=== PATIENT | male | born 1965 | race Caucasian/White ===

== ENCOUNTER 2023-06-01 07:29 | Day surgery (SDC) | payer BC, SELFPAY ==
[2023-06-01] VITALS (11 sets, daily range): BP systolic 102–129; BP diastolic 54–86; PULSE 53–65; RESP 16; TEMP 36.4–36.9; O2SAT 90–95; BMI 44.5
[2023-06-01] MEDS: SODIUM CHLORIDE 0.9 % (FLUSH) 10 ML SYRINGE IVF (08:10)
[2023-06-01] MEDS: LACTATED RINGERS 1000 ML 1,000 ML 100 ML IV ×2 (08:10→09:37)
[2023-06-01] MEDS: CEFAZOLIN 2 GM INJ IVP (09:15)
[2023-06-01] MEDS: BUPIVACAINE 0.25% 30 ML INJECTION (09:55)
--- NOTE | 2023-06-01 10:08 | W.ANESCHARGE ---
Anesthesia Charges Start Date/Time Anesthesia Start Date: 06/01/23 Anesthesia Start Time: 09:07 Stop Date/Time Anesthesia Stop Date: 06/01/23 Anesthesia Stop Time: 10:07
--- NOTE | 2023-06-01 10:09 | W.ANESCHARGE ---
Anesthesia Charges Start Date/Time Anesthesia Start Date: 06/01/23 Anesthesia Start Time: 09:07 Stop Date/Time Anesthesia Stop Date: 06/01/23 Anesthesia Stop Time: 10:07
--- NOTE | 2023-06-01 10:15 | P.ORPRC_ITS ---
Procedure Note Date of procedure: 06/01/23 Procedure: PREOPERATIVE DIAGNOSIS: Left knee medial meniscus tear POSTOPERATIVE DIAGNOSIS: Left knee medial meniscus root tear NAME OF OPERATION: Left knee arthroscopic partial medial meniscectomy SURGEON: Jamil Tinajero MD REPAIR TABLE OPERATOR: ANESTHESIA: Spinal ESTIMATED BLOOD LOSS: 0 mL COMPLICATIONS: None SPECIMENS: None DRAINS: None PREOPERATIVE ANTIBIOTICS: Ancef 2 gram INDICATIONS: The patient is a 57-year-old with a history of left knee medial pain. MRI scan is consistent with a medial meniscus tear. Despite appropriate nonoperative management, including activity modification, antiinflammatories, [id number] pain medication, bracing, physical therapy, and injections they continue to have pain and disability. Operative intervention was offered. The risks, benefits and expected outcomes were discussed in detail. These included but were not limited to: Infection, bleeding, injury to blood vessel or nerve, venous thromboembolism. All questions were answered to their satisfaction. PROCEDURE: Spinal anesthesia was administered. The patient was placed supine on the operating room table. The left lower extremity was prepped and draped in the usual sterile fashion. The limb was exsanguinated with the Mario Alberto bandage. The pneumatic tourniquet was inflated to 300 mmHg. A standard anterolateral portal was established. The arthroscope was introduced. The working portal was established anteromedially. Diagnostic arthroscopy was performed with findings as follows: The suprapatellar pouch is normal. Articular surface on the patella is normal. Articular surface on the trochlea shows grade 2 change. The medial gutter is normal. The medial compartment shows diffuse grade 3 change on the medial femoral condyle, grade 2 change on the medial tibial plateau. The medial meniscus has some degenerative tearing of the leading edge of the posterior horn. There is a radial tear, just off the posterior tibial attachment from the leading edge, to the capsule with some hemorrhage, suggesting it is acute. The notch shows the ACL to be intact with an osteophyte off of the tibia, just anterior to the ACL insertion. The lateral compartment shows normal articular cartilage on the lateral femoral condyle and lateral tibial plateau. The lateral meniscus is normal. The lateral gutter is normal. The undersurface and leading edge of the posterior horn of the medial meniscus was debrided to a stable base using a combination of baskets and teto through both portals. The stump of the posterior horn, still attached to the tibia, was debrided with the shaver. Unstable chondral flaps on the medial femoral condyle were debrided with the shaver taken to a stable base. Arthroscopic instruments were removed, the portal sites were Steri-Stripped closed, the knee was infiltrated with 30 mL of 0.25% Marcaine without epinephrine. A dry dressing was applied, the tourniquet was released. Sponge and needle counts were correct x 2. The patient tolerated the procedure well. There were no apparent complications. They were carefully transferred to the hospital bed and taken to the postanesthesia care unit in satisfactory condition. PLAN: The patient will be discharged to home. They may weightbear as tolerates. Range of motion will be unrestricted. They will follow up in the office next week for a wound check.
[2023-06-01] MEDS: OxyCODONE/APAP 5-325 TABLET 1 TAB PO (11:10)
== END 2023-06-01 11:26 | disposition home or self-care (01) ==
PROVIDERS: PCP Family Medicine; Visit Provider Orthopaedic Surgery
PROC: (CPT 29870; principal; 2023-06-01 09:30)
DX: M23.222 Derangement of posterior horn of medial meniscus due to old tear or injury, left knee (principal)
CPT/HCPCS: 29881; 01400; A9270; J0665; J0690; J2250; J2405; J2704; J3010; J7120

== ENCOUNTER 2024-09-12 06:14 | Day surgery (SDC) | payer BC, SELFPAY ==
[2024-09-12] VITALS (13 sets, daily range): BP systolic 111–152; BP diastolic 64–81; PULSE 61–78; RESP 16–20; TEMP 36.4–36.6; O2SAT 91–94; BMI 44.2
[2024-09-12] MEDS: 0.9 % SODIUM CHLORIDE 500 ML 500 ML 100 ML IV ×2 (06:30→10:31)
[2024-09-12] MEDS: SODIUM CHLORIDE 0.9 % (FLUSH) 10 ML SYRINGE IVF (06:38)
--- NOTE | 2024-09-12 07:36 | P.GSOP_ITS ---
Operative Note Date of procedure: 09/12/24 Pre-op diagnosis: Bilateral inguinal hernias Post-op diagnosis: Same Type of Procedure: Laparoscopic bilateral inguinal hernia repair with mesh Indications: The patient is a 58-year-old male who noted right groin swelling and was found to have bilateral fat containing inguinal hernias. Initially after discussing options, he elected to proceed with a watchful waiting approach, however he began to become more symptomatic on the left, having pain radiating down to his testicle. After ruling out any testicular infection or other concerns, he elected to proceed with repair of both hernias. Procedure Description: After discussing the risks and benefits of the procedure, the patient signed informed consent.? The operative site was marked and the patient was brought to the operating room and placed on the operating table in supine position.? Care was taken to pad the patient's pressure points.?? The patient was then intubated by anesthesia.?? The operative site was then prepped and draped in the usual sterile fashion.? A time-out was then performed. A curvilinear incision was made below the umbilicus. Dissection was carried down to subcutaneous tissue until the anterior rectus fascia was encountered. This was incised off the midlineOn the right. The rectus muscle fibers were then retracted exposing the posterior fascia. A port with a dissecting balloon was then introduced into the pre-preperitoneal space. This was inflated under direct vision. The balloon was deflated, removed, and a 10 mm working port was placed. The space was insufflated and a 10 mm 30-degree scope was then advanced into the space. Two 5 mm ports were placed in the midline under direct vision. Dissection began on the right side. Roman's ligament and the pubic bone were exposed medially. Following this, dissection was carried out laterally. An indirect hernia was noted. The hernia was associated with a large amount of herniated preperitoneal fat. This was able to be completely reduced along with the hernia sac. A small vessel within the fat was clipped for hemostasis. The cord structures were cleared intraperitoneally and dissection was carried out laterally to allow for mesh placement. A piece of Bard 3DMax mesh for the appropriate side was placed into the abdomen. This was positioned with the marker pointed medially. Attention was then turned to the left. Similarly, an indirect inguinal hernia was noted. This was reduced. This hernia was noted to be smaller and did not have a large cord lipoma associated with it. The hernia sac was reduced and dissected free of the cord structures using combination of sharp and blunt diss ection. The defect was explored visually to ensure any preperitoneal fat was reduced. The pubic bone was exposed medially and space was made laterally in the pelvis. A piece of Bard 3DMax mesh for the left side was then placed in the abdomen. This was similarly positioned with the marker pointed medially. Tacks were then placed to fix the mesh at Roman's ligament as well as 1 tack laterally to avoid the epigastric vessels and stay above the inguinal ligament. I then tacked the mesh on the right in the same fashion as the left side after ensuring it was seated appropriately and that it overlapped in the midline. Once this was completed the hernia sacs and intra-abdominal tissue was placed on top of the mesh and the preperitoneal space desufflated under direct vision to ensure the mesh laid flat. 20 mL of 0.5% Marcaine were instilled into the preperitoneal space through a port. The ports were removed. The fascia from the infraumbilical port was closed with 0 Vicryl. The skin incisions were closed with absorbable subcuticular suture. Sterile dressings were then applied. The scrotum was examined to ensure that both testicles were down. Instrument sponge and needle counts were correct at the end of the case. The patient was then woken and transported to the recovery area in stable condition. ? The patient tolerated the procedure well. Findings: 1. Bilateral indirect inguinal hernias 2. Large herniation of preperitoneal fat on the right Implants: Bilateral Bard large 3DMax mesh. Anesthesia: GETA Surgeon: Lexis Aden MD Estimated blood loss (mL): 5 Condition: stable Disposition: PACU
--- NOTE | 2024-09-12 07:36 | W.PM.H&PU ---
History & Physical Update History & Physical Update H&P Reviewed and patient assessed: No changes noted
[2024-09-12] MEDS: CEFAZOLIN 1 GM inj 3 GM IVP (07:48)
[2024-09-12] MEDS: BUPIVACAINE 0.25% 30 ML INJECTION (09:12)
--- NOTE | 2024-09-12 09:55 | W.ANESCHARGE ---
Anesthesia Charges Start Date/Time Anesthesia Start Date: 09/12/24 Anesthesia Start Time: 07:30 Stop Date/Time Anesthesia Stop Date: 09/12/24 Anesthesia Stop Time: 09:50
[2024-09-12] MEDS: HYDROmorphone 0.5 mg/0.5 ml inj IVP (10:10)
[2024-09-12] MEDS: HYDROCODONE-ACETAMIN 5-325 MG 1 TAB PO (11:20)
== END 2024-09-12 11:31 | disposition home or self-care (01) ==
PROVIDERS: PCP Family Medicine; Visit Provider Surgery
PROC: (CPT 49650; principal; 2024-09-12 07:30)
DX: K40.20 Bilateral inguinal hernia, without obstruction or gangrene, not specified as recurrent (principal)
CPT/HCPCS: 49650; 00830; A9270; C1781; J0330; J0665; J0690; J1100; J1171; J1885; J2405; J2704; J3010; J3490; J7030

== ENCOUNTER 2025-01-10 06:22 | Emergency (ER) | payer OTHER, BC, SELFPAY ==
--- OUTSIDE RECORDS SUMMARY | 2025-01-10 06:24 | XMS_ITS | Clinical Summary ---
Author Organization [facility] Address [address] [place] [address] Care Team Providers Care Patient Case Coordinator Name Role Phone Keith Paz MD Primary Care Provider Allergies No known active allergies Medications [id number] cetaminophen (VICKS NYQUIL NIGHTTIME RELIEF) 6.25-15-325 mg/15 mL liqd Take by mouth once daily in the evening. Active aspirin (ECOTRIN) 81 mg enteric coated tabletIndicatio ns:HTN (hypertension) Take 1 tablet by mouth once daily with a meal. 90 tablet PRN x 1 yr 7 Active nitroglycerin (NITROSTAT) 0.4 mg sublingual tabletIndicatio ns:Abnormal stress test Place 1 tablet under the tongue every 5 minutes if needed for Chest Pain. 25 tablet 1 9 Active CPAPIndications :Obstructive sleep apnea CPAP machine for home use at pressure: 5-15 CM H20 , Heated humidifier x 1, Humidifier chamber x 1, Full face mask with cushion x 1, Heated tubing x 1, Headgear x 1, Filters: Disposable x 1pk & Reusable x 1pk, Length of Need: 99 months, Frequency of use: Daily 1 Each 11 2 Active cyanocobalamin (Vitamin B-12) 1,000 mcg tabletIndicatio ns:B12 deficiency Take 1 Tablet (1,000 mcg) by mouth once daily. 90 Tablet 3 4 Active amLODIPine (NORVASC) 10 mg tabletIndicatio ns:Ascending aorta dilatation TAKE 1 TABLET (10 MG) BY MOUTH ONCE DAILY. 90 Tablet 2 4 Active atorvastatin (LIPITOR) 80 mg tabletIndicatio ns:Ascending aorta dilatation Take 1 Tablet (80 mg) by mouth once daily. Please call [phone] 2 months in advance to schedule an office visit with imaging due in November 2024 90 Tablet 2 4 Active metoprolol succinate (TOPROL XL) 50 mg sustained-relea se tabletIndicatio ns:Ascending aorta dilatation,Abno rmal stress test Take 1 Tablet (50 mg) by mouth once daily. Please call [phone] 2 months in advance to schedule an office visit with imaging due in November 2024 90 Tablet 2 4 Active sildenafil citrate (Viagra) 100 mg tabletIndicatio ns:Erectile dysfunction of organic origin Take 1 Tablet (100 mg) by mouth once daily if needed for Erectile Dysfunction. Take 30min to 4 hours before sexual activity. Max 100mg/24hr. 15 Tablet 1 4 Active losartan (COZAAR) 100 mg tabletIndicatio ns:Ascending aorta dilatation Take 1 Tablet (100 mg) by mouth once daily. 90 Tablet 3 4 Active Active Problems Patient Care Coordination No te Formatting of this note migh t be different from the original. HF/Structural/Prevention Research Eligibility Review Date: 09/03/19 Upcoming Visit Location: [facility] Age: 53 y.o. Insurance: [employer] EF: LVID: Valve/Imaging: Cardiac Devices: Comments: HF: DNQ Structural: DNQ Prevention: Last lipids - 11/12/2018 Triglycerides: 337 HDL: 41 Non-HDL: 148 LDL: 81 A1c: Diabetes: No Vesalius:Potential Problem Noted Date Diagnosed Date Tear of medial meniscus of left knee 01/08/2024 Osteoarthritis of left knee 01/08/2024 TROPONIN INTERFERING ANTIBODY 12/27/2018 Overview (06/10/2019): TROPONIN elevation due to interfering Ab: troponin I = 0.099ng/mL (Reference < 0.034ng/mL), Troponin T, 5th gen = 14ng/L (Reference <15ng/L) measured simultaneously 12/27/18 Essential hypertension 11/12/2018 Microalbuminuria 11/12/2018 Morbid obesity with BMI of 45.0-49.9, adult 10/20 Ascending aorta dilatation 12/30/2016 Multilevel lumbar disk protrusions 03/22/2013 JACQUES 11/17/2010 AHI- 20 11/19/2010 Degeneration of cervical intervertebral disc 03/2010 Abnormal nuclear stress test Resolved Problems Problem Noted Date Diagnosed Date Resolved Date Non-ST elevation (NSTEMI) my ocardial infarction 09/05/2024 09/05/2024 Routine adult health maintenance 08/26/2019 09/06/2024 Overview (08/26/2019): Colonoscopy 08/2019 diverticulosis, repeat in 10 years HTN (hypertension) 12/30/2016 9 Unstable angina 12/22/2016 12/04/2017 Cardiovascular symptoms 09/19 Chest pain 10/08/2021 Encounters Date Type Department Care Team Description 12/19/[address] [place] [address] Abrahan Pryor MD Results (trop) 12/10/2024 11:15 AM CDT Orders Only [facility] [address] [place] [address] Lab, [place] [facility] 12/10/2024 10:00 AM CDT Office Visit [facility] [address] [facility] [phone] Abrahan Pryor MD Follow Up (Follow up Ascending aorta dilatation, yearly visit ) 12/10/2024 Travel 12/02/2024 10:00 AM CDT Ancillary Procedure [facility] [address] [place] [phone] 12/02/2024 Travel from Last 3 Months Immunizations Immunization Administration Dates Next Due COVID-19 vaccine (Aireon 30mcg/0.3mL) P F, MDV 10/08/2021,09/17/2021 Influenza A (H1N1), Inactivated 09/01/2009 Influenza, IIV3 (Age >=3 years) 08/14/2012,06/21 Influenza, IIV4 09/01/2014 Td, Preservative Free (age >= 7 Years) 5 Tdap 03/03/2011 Family History Medical History Relation Name Comments Anesthesia Problem Neg. Cancer-colon No Family History Cancer-prostate No Family History Diabetes No Family History Heart attack No Family History Relation Name Status Comments Neg. Social History Tobacco Use Types Packs/Day Years Used Date Smoking Tobacco: Former Cigars Smokeless Tobacco: Never Tobacco Cessation:Counseling Given: Yes Comments:half a cigar once a week. (social) Alcohol Use Standard Drinks/Week Comments Yes 0 (1 standard drink = 0.6 oz pure alcohol) once per week, moderate, heavy on weekends PHQ-2 Answer Date Recorded PHQ-2 TOTAL SCORE 0 10/11/2022 Social Connections Answer Date Recorded Do you often feel lonely or isolated from those around you? 0 10/11/2024 Financial Resource Strain Answer Date R ecorded Difficulty of Paying Living Expenses 3 10/11/2024 Difficulty of Paying Living Expenses Not on file 10/11/2024 Food Insecurity Answer Date Recorded Do you worry your food will run out before you are able to buy more? 1 10/11/2024 Transportation Needs Answer Date Record ed Does lack of transportation keep you from medica l appointments? 1 10/11/2024 Does lack of transportation keep you from work, meetings or getting things that you need? 1 10/11/2024 Housing Stability Answer Date Recorded What is your housing situation today? 1 10/11/2024 Utilities Answer Date Recorded Do you have trouble paying f or utilities (for example, heat, electricity, water, phone)? 1 10/11/2024 Sex and Gender Information Value Date Recorded Sex Assigned at Not on file Legal Sex Male 5:24 AM OPTICAL INSTRUMENT SPECIALIST Gender Identity Not on file Sexual Orientation Not on file Obstetrics History Last Filed Vital Signs Vital Sign Reading Time Taken Comments Blood Pressure 138/82 12/10/2024 10:03 AM CDT Pulse 63 12/10/2024 10:03 AM CDT Temperature 36.8 C (98.2 F) 10/11/2024 11:23 AM OPTICAL INSTRUMENT SPECIALIST Respiratory Rate 18 09/06/2024 10:2 7 AM OPTICAL INSTRUMENT SPECIALIST Oxygen Saturation 94% 12/10/2024 10: 03 AM CDT Inhaled Oxygen Concentration - - Weight 137.2 kg (302 lb 8 oz) 10:03 AM CDT Height 174 cm (5' 8.5) 09/06/2024 10:2 7 AM OPTICAL INSTRUMENT SPECIALIST with shoes Body Mass Index 45.32 09/06/2024 10:27 AM OPTICAL INSTRUMENT SPECIALIST Plan of Treatment Upcoming Encounters Date Type Department Care Team (Late st Contact Info) Description 01/15/2025 10:30 AM CDT Appointment [facility] [address] [place] [address] Health Maintenance Due Date Last Done Comments Pneumococcal series for age 50+ (1 of 2 - PCV) 1984 Zoster (shingles) series for age 50+ (1 of 2) 2015 Tetanus booster 03/03/2021 03/03/2011, 05/09/2005 Depression screening for age 12+ 10/13/2023 10/13/2022, 10/11/2022, 10/08/2021, Additional history exists COVID-19 vaccine series ( season) 2024 10/08/2021, 09/17/2021 Influenza Vaccine (Season Ended) 2025 09/01/2014, 08/14/2012, 06/21/2010 BMI (ht and wt on same day) for age 18+ 09/06/2025 09/06/2024, 05/18/2023, 03/22/2023, Additional history exists Lipids for age 45-75 12/11/2028 12/12/2023, 11/18/2022, 10/08/2021, Additional history exists Colonoscopy through age 75 08/26/202908/26, 08/26/2019, 08/26/2019, Additional history exists Tdap Completed 03/03/2011 HIV for age 15-65 Completed 11/18/2022 Hepatitis C screening for ag e 18-79 Completed 11/18/2022 Procedures Procedure Name Priority Date/Time Associated Diagnosis Comments TROPONIN T (HS) STABLE AMBULATORY Routine 12/10/2024 11:03 AM CDT ASHD (arteriosclerotic heart disease) ECHO TTE COMPLETE WO CONTRAST Routine 12/02/2024 10:43 AM CDT Abnormal stress test LIPID PANEL W REFLEX MEASURED LDL Routine 12/12/2023 9:10 AM CDT Pure hypercholesterolemia LC HIV-1/O/2, 4TH GENERATION Routine 11/18/2022 10:35 AM OPTICAL INSTRUMENT SPECIALIST Screening for HIV (human immunodeficiency virus) LC HCV ANTIBODY RFX TO QUANT PCR Routine 11/18/2022 10:35 AM OPTICAL INSTRUMENT SPECIALIST Need for hepatitis C screening test COLONOSCOPY SCREENING Routine 08/26/2019 12:00 AM OPTICAL INSTRUMENT SPECIALIST Screening for colon cancer from Last 3 Months or Most Recently Relevant to Health Maintenance Results * TROPONIN T (HS) STABLE AMBULATORY - NOT FOR CHEST PAIN PROTOCOL/ACUTE CORONARY SYNDROMES [[id number]](12/10/2024 11:03 AM CDT) TROPONIN T, HIGH SENSITIVITY (HS NELLY) 12 <23 ng/L [facility] Comment: Relative Risk: Optimal <6 ng/L; Moderate: Males 6-22 ng/L, Females 6-14 ng/L; High: Males: >22 ng/L, Females: >14 ng/L. Reference Range: Males <23 ng/L, Females <15 ng/L. High Sensitivity Troponin T (hs-Nelly) levels exceeding the gender-specific 99th percentile upper reference limit (males >22 ng/L, females >14 ng/L) may indicate a recent acute myocardial infarction however, hs-Nelly results should always be assessed in conjunction with the patients medical history, clinical examination, symptoms of cardiac ischemia, electrocardiogram results, and/or other cardiovascular disease (CVD) diagnostic findings. Elevations in hs-Nelly can also be observed in other heart conditions. To distinguish between acute and chronic hs-Nelly elevations, serial sampling and clinical correlation is recommended for interpretation. There is literature supporting any hs-Nelly >=6 ng/L confers increased CVD relative risk (Laya OW, et al. [place] Epidemiol. 2013;23(2):66-73; Zuleika SL, et al. Circulation. 2017;135(16):8593-1262). For additional information, please refer to [email or web address] (this link is being provided for informational/educational purposes only). Blood BLOOD SPECIMEN / Unknown 12/10/2024 11:03 AM CDT 12/10/2024 11:04 AM CDT Abrahan Pryor MD CHEMISTRY Final Result [employer] [address] [place] [address] [place] [id number], [employer] [facility] [address], [address] [place] [address] * ECHO TTE COMPLETE WO CONTRAST (12/02/2024 10:43 AM CDT) AORTIC VALVE MEAN PG 6 mmHg EJECTION FRACTION 62 % PEAK TR VELOCITY 2.4 m/s LVEDD 5.4 cm Anatomical Region Laterality Modality Ultrasound 12/02/2024 10:0 3 AM CDT Narrative 12/02/2024 11:01 AM CDT ECHOCARDIOGRAM IMELDA JORDAN : 1965 59 years Study Date: 12/02/2024 10:03:24 AM Gender: M BP: 156/79 mmHg Height: 173.00 cm BSA: 2.42 m Weight: 134.00 kg Tech: MBF Referring MD: PITO SERRANO Site: [facility] Reading Location: Mobile OP Patient Location: Outpatient. Procedure: 2D, Color Doppler and Spectral Doppler. Indication for study: Abnormal stress test Cardiac Rhythm: Regular and with premature ventricular contractions.Study quality: Good. Final Impressions: 1. Normal left ventricular size, normal wall thickness, normal global systolic function, calculated EF of 62 %. 2. Right ventricular cavity size is mildly enlarged, global systolic RV function is normal. 3. No significant valve disease detected. 4. Normal estimated RA pressure and PASP. 5. Dilated ascending aorta, diameter of 4.8 cm (upper limit of normal for age, sex, and BSA is 4.1 cm*), Height Index 2.75. Comparison Compared to prior exam of 11/18/2022: Asc Aorta measures slightly large on this exam (previously 4.6 cm). Chamber Sizes and Function Normal left ventricular size, normal wall thickness, normal global systolic function, calculated EF of 62 %. No resting regional wall motion abnormality visualized. Left atrial size is normal. Left atrial pressure is normal. Right ventricular cavity size is mildly enlarged, global systolic RV function is normal. RV wall thickness is normal. The right atrium is mildly enlarged. Right atrial volume index is 35 ml/m . Right atrial area is 26 cm . The pulmonary artery is of normal size and origin. The sinus of Valsalva is normal sized. The ascending aorta is dilated. Valves, RV Pressures and Diastolic Function The aortic valve is normal in structure and trileaflet, no stenosis and trivial regurgitation. The mitral valve is normal in structure, trace mitral regurgitation. Normal diastolic function. The tricuspid valve is normal in structure and trace tricuspid regurgitation. The tricuspid regurgitant velocity is 2.4 m/s, the estimated right ventricular systolic pressure is 24 mmHg plus right atrial pressure. There is normal estimated pulmonary pressure by tricuspid regurgitation velocity and right atrial pressure. The pulmonic valve is not well visualized. Trace pulmonary regurgitation. Masses, Effusion, Shunts There is no pericardial effusion. The inferior vena cava is normal sized, respiratory size variation greater than 50%. No left to right shunting was detected by limited color flow Doppler interrogation of the interatrial septum. MEASUREMENTS AND CALCULATIONS 2-D Measurements and LV Function: LVID (d) 5.4 cm Planimetered EF 62 % LVID (s) 3.5 cm LV FS% (2D) 35 % IVS (d) 1.1 cm LVOT diameter 2.1 cm LVPW (d) 1.1 cm HR 70 bpm Ao Sinus 4.0 cm LA Vol index 27 ml/m2 Ao Sinus ULN 4.1 cm * RA Vol index 35 ml/m2 Asc Ao 4.8 cm RA area 26 cm Asc Ao ULN 4.1 cm * RV Basal Diam 4.8 cm * Input BSA outside of range, reported values RV Mid Diam 2.9 cm correspond to BSA = 2.1 Diastology: Mitral Tissue Doppler E Peak 0.7 m/s e', Septum 0.06 m/s A Peak 1.0 m/s e', Lateral 0.13 m/s E/A 0.7 E/e' Average 7.37 DT 297 msec Aortic Valve: Vmax 1.7 m/s RODO (V) 2.96 cm VTI 0.32 m RODO (I) 3.25 cm LVOT V max 1.4 m/s Max PG 12 mmHg LVOT VTI 0.29 m Mean PG 6 mmHg SV 103 ml Dim Index 0.90 SV index 43 ml/m CO 7.2 l/min CI 3.0 l/min/m Mitral Valve: MVA 2.6 cm MV P 1/2 86 msec Tricuspid Valve and estimated PA pressures: TR Vmax 2.4 m/s TAPSE 3.6 cm TR maxG 24 mmHg . This study was interpreted by an [facility] accredited facility. Final Procedure Note Bobby Galvez MD - 12/02/2024 ECHOCARDIOGRAM IMELDA JORDAN : 1965 59 years Study Date: 12/02/2024 10:03:24 AM Gender: M BP: 156/79 mmHg Height: 173.00 cm BSA: 2.42 m Weight: 134.00 kg Tech: [facility] Referring MD: PITO SERRANO Site: [facility] Reading Location: Mobile OP Patient Location: Outpatient. Procedure: 2D, Color Doppler and Spectral Doppler. Indication for study: Abnormal stress test Cardiac Rhythm: Regular and with premature ventricular contractions.Studyquality: Good. Final Impressions: 1. Normal left ventricular size, normal wall thickness, normal globalsystolic function, calculated EF of 62 %. 2. Right ventricular cavity size is mildly enlarged, global systolic RVfunction is normal. 3. No significant valve disease detected. 4. Normal estimated RA pressure and PASP. 5. Dilated ascending aorta, diameter of 4.8 cm (upper limit of normal forage, sex, and BSA is 4.1 cm*), Height Index 2.75. Comparison Compared to prior exam of 11/18/2022: Asc Aorta measures slightly large on this exam (previously 4.6 cm). Chamber Sizes and Function Normal left ventricular size, normal wall thickness, normal globalsystolic function, calculated EF of 62 %. No resting regional wall motionabnormality visualized. Left atrial size is normal. Left atrial pressureis normal. Right ventricular cavity size is mildly enlarged, globalsystolic RV function is normal. RV wall thickness is normal. The rightatrium is mildly enlarged. Right atrial volume index is 35 ml/m . Rightatrial area is 26 cm . The pulmonary artery is of normal size and origin.The sinus of Valsalva is normal sized. The ascending aorta is dilated. Valves, RV Pressures and Diastolic Function The aortic valve is normal in structure and trileaflet, no stenosis andtrivial regurgitation. The mitral valve is normal in structure, tracemitral regurgitation. Normal diastolic function. The tricuspid valve isnormal in structure and trace tricuspid regurgitation. The tricuspidregurgitant velocity is 2.4 m/s, the estimated right ventricular systolicpressure is 24 mmHg plus right atrial pressure. There is normal estimatedpulmonary pressure by tricuspid regurgitation velocity and right atrialpressure. The pulmonic valve is not well visualized. Trace pulmonaryregurgitation. Masses, Effusion, Shunts There is no pericardial effusion. The inferior vena cava is normal sized,respiratory size variation greater than 50%. No left to right shunting wasdetected by limited color flow Doppler interrogation of the interatrialseptum. MEASUREMENTS AND CALCULATIONS 2-D Measurements and LV Function: LVID (d) 5.4 cm Planimetered EF 62% LVID (s) 3.5 cm LV FS% (2D) 35% IVS (d) 1.1 cm LVOT diameter2.1 cm LVPW (d) 1.1 cm HR 70bpm Ao Sinus 4.0 cm LA Vol index 27ml/m2 Ao Sinus ULN 4.1 cm * RA Vol index 35ml/m2 Asc Ao 4.8 cm RA area 26cm Asc Ao ULN 4.1 cm * RV Basal Diam4.8 cm * Input BSA outside of range, reported values RV Mid Diam2.9 cm correspond to BSA = 2.1 Diastology: Mitral Tissue Doppler E Peak 0.7 m/s e', Septum 0.06 m/s A Peak 1.0 m/s e', Lateral 0.13 m/s E/A 0.7 E/e' Average 7.37 DT 297 msec Aortic Valve: Vmax 1.7 m/s RODO (V) 2.96 cm VTI 0.32 m RODO (I) 3.25 cm LVOT V max 1.4 m/s Max PG 12 mmHg LVOT VTI 0.29 m Mean PG 6 mmHg SV 103 ml Dim Index 0.90 SV index 43 ml/m CO 7.2 l/min CI 3.0 l/min/m Mitral Valve: MVA 2.6 cm MV P 1/2 86 msec Tricuspid Valve and estimated PA pressures: TR Vmax 2.4 m/s TAPSE 3.6 cm TR maxG 24 mmHg . This study was interpreted by an [facility] accredited facility. Final us Pito Serrano MD, PhD ECHO ORD Fin al Result * LIPID PANEL W REFLEX MEASURED LDL (12/12/2023 9:10 AM CDT) CHOLESTEROL,TOTAL 167 100 - 199 mg/dL 12/12/2023 4:33 PM T [facility] Comment: Cholesterol, Total Reference Ranges Desirable <200 mg/dL Borderline 200-239 mg/dL High >=240 mg/dL TRIGLYCERIDES 103 <150 mg/dL 12/12/2023 4:33 PM CDT [facility] HDL CHOLESTEROL 45 >40 mg/dL 4:33 PM T [facility] NON-HDL CHOLESTEROL 122 <145 mg/dl 12/12/2023 4:33 PM T [facility] CHOL/HDL RATIO 3.71 <4.50 12/12/2023 4:33 PM T [facility] LDL CHOLESTEROL 101 <=130 mg/dL 12/12/2023 4:33 PM T [facility] VLDL CHOLESTEROL 21 <=30 mg/dL 12/12/2023 4:33 PM T [facility] PROVIDER ORDERED STATUS RANDOM 12/12/2023 4:33 PM CDT [facility] Blood BLOOD SPECIMEN / Unknown Venipuncture / Unknown 12/12/2023 9:10 AM CDT 12/12/2023 9:10 AM CDT Pito Serrano MD, PhD CHEMISTRY Fin al Result [facility] [address] [place] [address], [place] * LC HCV ANTIBODY RFX TO QUANT PCR (11/18/2022 10:35 AM OPTICAL INSTRUMENT SPECIALIST) HCV Ab Non Reactive Non Reactive 11/22/2022 6:08 AM OPTICAL INSTRUMENT SPECIALIST [facility] ([facility]) Blood BLOOD SPECIMEN / Unknown Venipuncture / Unknown 11/18/2022 10:35 AM OPTICAL INSTRUMENT SPECIALIST 11/18/2022 10:38 AM OPTICAL INSTRUMENT SPECIALIST Narrative [facility] ([facility]) - 11/22/2022 6:08 AM OPTICAL INSTRUMENT SPECIALIST Performed at: - [facility] [employer] [address] [id number] [employer]: Petr Shah MD, Phone: [phone] us Keith Paz MD LABORATORY Final Result Performing Organization Address City/[facility]/ZIP Co de Phone Number [facility] ([facility]) [address] [place] [id number], [place] * LC HIV-1/O/2, 4TH GENERATION (11/18/2022 10:35 AM OPTICAL INSTRUMENT SPECIALIST) HIV Scr 4th Gen Non Reactive Non Reactive 11/22/2022 8:37 AM OPTICAL INSTRUMENT SPECIALIST [facility] ([facility]) Comment: HIV Negative HIV-1/HIV-2 antibodies and HIV-1 p24 antigen were NOT detected. There is no laboratory evidence of HIV infection. Blood BLOOD SPECIMEN / Unknown Venipuncture / Unknown 11/18/2022 10:35 AM OPTICAL INSTRUMENT SPECIALIST 11/18/2022 10:38 AM OPTICAL INSTRUMENT SPECIALIST Narrative [facility] ([facility] - 11/22/2022 8:37 AM OPTICAL INSTRUMENT SPECIALIST Performed at: 01 - [facility] [place] [address] [id number] [employer]: Petr Shah MD, Phone: [phone] us Keith Paz MD LABORATORY Final Result [facility] ([facility]) [facility] [place] [address], * COLONOSCOPY SCREENING (08/26/2019 12:00 AM OPTICAL INSTRUMENT SPECIALIST) us Keith Paz MD GI PROCEDURE ORD Final Result from Last 3 Months or Most Recently Relevant to Health Maintenance Insurance [facility] [place] Advance Directives * Full Code (Latest Code Status on File) Date Activated Date Inactivated Comments 12/27/2018 8:18 AM 12/27/2018 1:19 PM * Full Code Date Activated Date Inactivated Comments 12/22/2016 1:36 PM 12/23/2016 6:13 PM * Full Code Date Activated Date Inactivated Comments 12/22/2016 1:24 PM 12/22/2016 1:36 PM Care Teams Patient Case Coordinator Relationship Specialty Start Date End Date Keith Paz MD [address] [place] [address] PCP - General Family Practice 12/12/23
[2025-01-10 06:29] VITALS: BP 161/92; PULSE 87; RESP 18; TEMP 36.6; O2SAT 96; BMI 41.6
--- NOTE | 2025-01-10 06:35 | CRLHL7_ITS ---
For Patients: As a result of the Century Cures Act, medical imaging exams and procedure reports are released immediately into your electronic medical record. You may view this report before your referring provider. If you have questions, please contact your health care provider. INDICATION: Injury with posterior rib pain. COMPARISON: January 15, 2024 TECHNIQUE: CT examination of the chest, abdomen and pelvis was performed following the uneventful intravenous administration of 140 cc of Isovue 370. Thin section axial images were obtained from the thoracic inlet through the pubic symphysis. Oral contrast was not administered. Sagittal and coronal reformatted imaging was performed Please note that all CT scans at this facility use dose modulation, iterative reconstruction, and/or weight-based dosing when appropriate to reduce radiation dose to as low as reasonably achievable. FINDINGS: CHEST: The heart size is normal. There is no mediastinal or hilar adenopathy or mass. There is no pericardial effusion. No indication of mediastinal vascular injury Minimal basilar atelectasis. No definite laceration or contusion. Tiny right effusion. Very small but unequivocal right pneumothorax best seen anteriorly. This is related to rib fractures as described below ABDOMEN AND PELVIS: LIVER/BILIARY SYSTEM:The liver is normal in size and configuration. There is no focal mass and there is no intra- or extra hepatic biliary ductal dilatation.Hepatic steatosis. Cholelithiasis without evidence of acute cholecystitis or common duct obstruction ADRENALS: Normal KIDNEYS, URETERS and BLADDER:Low-density renal lesions consistent with cysts. No posttraumatic finding. No obstructive uropathy. The bladder appears normal SPLEEN:Normal appearance. PANCREAS: Appears normal. RETROPERITONEUM and MESENTERY: There is no mass, adenopathy or aortic aneurysm. Atherosclerotic vascular calcifications. Incidentally, the patient has a duplicated IVC. GASTROINTESTINAL SYSTEM: There is no evidence of diverticulitis, colitis, mechanical obstruction, or appendicitis. The small bowel as visualized appears normal. PELVIS: No mass, adenopathy or free fluid. OSSEOUS STRUCTURES and ABDOMINAL WALL: There are fractures of the posterolateral aspect of the right 7th, 8th and 9th ribs. The 7th and 9th rib fractures are not displaced. The right rib fracture is displaced by about 1 cortex width. There is a small amount of subcutaneous emphysema. There are no additional fractures identified involving the ribcage, scapula, sternum, thoracic spine, lumbar spine or pelvis.No significant traumatic abdominal wall abnormality. Incidental fat containing bilateral inguinal hernias and diastasis rectus. OTHER: No free fluid or free air. Discussed with Dr. Kaur at 7:55 a.m. on January 11, 2020 IMPRESSION: 1. CHEST: Minimal bibasilar atelectasis. No definite contusion or laceration. Tiny right effusion. Very small but unequivocal right pneumothorax related to rib fractures as described below. No mediastinal vascular injury 2. ABDOMEN AND PELVIS: No solid organ injury. Nonacute/nontraumatic findings as discussed above 3. OSSEOUS STRUCTURES: Fractures of the right 7th, 8th and 9th ribs. The 7th and 9th rib fractures are not significantly displaced. Eighth rib fracture is displaced by about 1 cortex width. There is a small amount of associated subcutaneous emphysema. No additional fractures identified. Please note that all CT scans at this facility use dose modulation, iterative reconstruction, and/or weight-based dosing when appropriate to reduce radiation dose to as low as reasonably achievable. Dictated by Dov Roberts MD @ 01/10/2025 8:00:42 AM (Electronically Signed)
--- NOTE | 2025-01-10 06:35 | ED_ITS ---
HPI - General Adult General Date Seen: 01/10/25 Chief complaint: Rib Pain Stated complaint: broken ribs-work comp Time Seen by Provider: 01/10/25 06:35 Source: patient and RN notes reviewed Mode of arrival: ambulatory Limitations: no limitations History of Present Illness HPI narrative: Imelda is a very pleasant 59-year-old male with history of hypertension and hyperlipidemia who comes to the emergency room with acute onset of pain after a fall. 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 Since that time he has had significant pain, he has not been able to take a deep breath. Movement greatly exacerbated his discomfort. He has not taken anything for pain at this time. He denies hitting his head or loss of consciousness. He denies any numbness or tingling of the lower extremities and has been able to walk. Was able to leave a urine sample and there is no report of any up blood in that sample. This is a worker's comp injury. Related Data Home Medications ?Medication ?Instructions ?Recorded ?Confirmed amlodipine 10 mg tablet 10 mg PO DAILY 04/10/23 09/12/24 atorvastatin 40 mg tablet 40 mg PO DAILY 04/10/23 09/12/24 atorvastatin 80 mg tablet 80 mg PO DAILY 04/10/23 09/12/24 hydrochlorothiazide 25 mg tablet 25 mg PO DAILY 04/10/23 09/12/24 losartan 100 mg tablet 100 mg PO DAILY 04/10/23 09/12/24 metoprolol succinate 50 mg 50 mg PO DAILY 04/10/23 09/12/24 tablet,extended release 24 hr aspirin 81 mg tablet,delayed 81 mg PO DAILY 05/30/23 09/12/24 release lorazepam 1 mg tablet 1 mg PO DAILY 05/30/23 09/12/24 naproxen 500 mg tablet (Naprosyn) 500 mg PO BID 05/30/23 09/12/24 nitroglycerin 0.4 mg sublingual 0.4 mg sublingual Q5M PRN 05/30/23 09/12/24 tablet (Nitrostat) sildenafil 100 mg tablet (Viagra) 100 mg PO DAILY PRN 05/30/23 09/12/24 cyanocobalamin (vitamin B-12) 1,000 mcg PO DAILY 06/07/23 09/12/24 1,000 mcg tablet (Vitamin B-12) Previous Rx's ?Medication ?Instructions ?Recorded hydrocodone 5 mg-acetaminophen 325 1 - 2 tab PO Q6H PRN Pain #20 tabs 09/12/24 mg tablet Allergies Allergy/AdvReac Type Severity Reaction Status Date / Time No Known Drug Allergies Allergy Verified 09/12/24 06:25 Review of Systems Status of ROS: Reports: 6 or more systems reviewed and unremarkable except as noted in History and below [facility] Medical History (Updated 01/10/25 @ 08:20 by Priya Martinez MD) Protrusion of lumbar intervertebral disc ?M51.26 - Other intervertebral disc displacement, lumbar region (ICD-10) Degeneration of cervical intervertebral disc ?M50.30 - Other cervical disc degeneration, unspecified cervical region (ICD- 10) JACQUES (obstructive sleep apnea) ?G47.33 - Obstructive sleep apnea (adult) (pediatric) (ICD-10) HLD (hyperlipidemia) ?E78.5 - Hyperlipidemia, unspecified (ICD-10) Ascending aorta dilation ?I77.810 - Thoracic aortic ectasia (ICD-10) Hypertension ?I10 - Essential (primary) hypertension (ICD-10) Non-ST elevation (NSTEMI) myocardial infarction ?I21.4 - Non-ST elevation (NSTEMI) myocardial infarction (ICD-10) Surgical History H/O arthroscopy of left knee (06/01/23) ?Z98.890 - Other specified postprocedural states (ICD-10) History of nasal surgery ?Z98.890 - Other specified postprocedural states (ICD-10) History of back surgery (~2005) ?Z98.890 - Other specified postprocedural states (ICD-10) History of appendectomy ?Z90.49 - Acquired absence of other specified parts of digestive tract (ICD- 10) History of vasectomy ?Z98.52 - Vasectomy status (ICD-10) History of arthroscopy of right shoulder (01/24/18) ?Z98.890 - Other specified postprocedural states (ICD-10) History of arthroscopy of right knee (01/20/16) ?Z98.890 - Other specified postprocedural states (ICD-10) History of arthroscopy of left shoulder (10/06/10) ?Z98.890 - Other specified postprocedural states (ICD-10) Social History (Updated 06/07/23 @ 10:27 by Edilia Hernández ~ [facility], [facility]) Smoking Status: Former smoker Do you use any of these nicotine containing products: Vaping Products Nicotine containing products detail: quit vaping 06/01/2023 Second hand tobacco smoke exposure: No How often do you have a drink containing alcohol: 2-3 times a week Alcohol type: hard liquor How many standard drinks containing alcohol do you have on a typical day: 1 or 2 How often do you have six or more drinks on one occasion: Never AUDIT-C Alcohol total score: 3 Non-prescribed substance use: denies use Caffeine: Yes Exam Narrative: Exam Narrative: Patient is alert and oriented. In obvious distress. External ears eyes nose clear. Mentating normally. Speech is normal. Neck is supple without lymphadenopathy. No midline cervical tenderness. Heart with a regular rate and rhythm and lungs are clear although patient cannot take a deep breath and therefore decreased operations controller breath sounds noted in the bases bilaterally. There are no external signs of trauma on his back or posterior ribcage. He does have point tenderness at approximately T9-10 to the right of the thoracic spine. No step-offs of the thoracic spine. Abdomen is soft. Lower extremities mobile. Const: Vital Signs, click to edit/add: Vital Signs - 24 hr 01/10/25 06:29 01/10/25 07:16 01/10/25 07:18 Temperature 97.8 F Pulse Rate 86 85 Pulse Rate [Pulse Oximeter] 87 Respiratory Rate 18 Blood Pressure 147/91 H Blood Pressure [Le ft Upper Arm] 161/92 H Pulse Oximetry 96 94 Oxygen Delivery Me thod Room Air 01/10/25 08:49 Temperature Pulse Rate Pulse Rate [Pulse Oximeter] 86 Respiratory Rate 16 Blood Pressure Blood Pressure [Le ft Upper Arm] 165/92 H Pulse Oximetry 94 Oxygen Delivery Me thod Room Air Documenting provider has reviewed patient's vital signs: yes Course Course ED Course: Patient noted to have a trauma from a fall onto very hard raise object just to the right of his thoracic spine lower level. Will place IV accomplished labs to include CBC, comprehensive as well as urinalysis for hematuria. Pain control with morphine 4 mg Zofran 4 mg and will give fluids. Plan on CT of the chest abdomen pelvis secondary to posterior flank and chest wall trauma. Reevaluation(s) Reevaluation #1: At 0758 received a phone call from the radiologist regarding 3 rib fractures posterior of the 7th 8th and 9th ribs. Nondisplaced 7th and 9th rib fractures but a displaced mildly of the 8th rib. This is associated with a very small/tiny right pneumothorax and trace free fluid. No evidence of a lung contusion or intra-abdominal injury. Your contacting [facility] for discussion regarding need for transfer. Patient requests that he could stay at [facility] if possible. [facility] [place] call the could not find a physician and thus waited on a call back at approximately 0813. Dr. Kaur accepts patient in transfer to [facility] ED. Does believe he will need admission for continued monitoring. Reevaluation #2: Patient is disappointed that the recommendation is not to stay and [facility]. He does understand that he meets criteria for admission to the ICU at [facility]. Unfortunately, he is at risk for expanding pneumothorax as well as lung contusion. Further, his pain will likely worsen over the next 24- 36 hours. Will administer Ativan 0.5 mg at this time to help with any muscular spasm. Vital Signs Vital signs: Initial Vital Signs Temperature 97.8 F 01/10/25 06:29 Temperature Source Temporal Artery Scan 01/10/25 06:29 Pulse Rate 87 01/10/25 06:29 Respiratory Rate 18 01/10/25 06:29 Blood Pressure 161/92 H 01/10/25 06:29 Blood Pressure Mean 115 H 01/10/25 06:29 Blood Pressure Position Sitting 01/10/25 06:29 Pulse Oximetry 96 01/10/25 06:29 Oxygen Delivery Method Room Air 01/10/25 06:29 Vital Signs Temperature 97.8 F 01/10/25 06:29 Pulse Rate 87 01/10/25 06:29 Respiratory Rate 18 01/10/25 06:29 Blood Pressure 161/92 H 01/10/25 06:29 Pulse Oximetry 96 01/10/25 06:29 Oxygen Delivery Method Room Air 01/10/25 06:29 Temperature 97.8 F 01/10/25 06:29 Pulse Rate 86 01/10/25 08:49 Respiratory Rate 16 01/10/25 08:49 Blood Pressure 165/92 H 01/10/25 08:49 Pulse Oximetry 94 01/10/25 08:49 Oxygen Delivery Method Room Air 01/10/25 08:49 Medications Administered Medications: Discontinued Medications Generic Name Dose Route Start Last Admin Trade Name Sylvester PRN Reason Stop Dose Admin Hydromorphone HCl 0.5 mg 01/10/25 07:09 01/10/25 07:12 Hydromorphone 0.5 Mg/0.5 Ml Inj IVP 01/10/25 07:10 0.5 mg ONCE ONE Administration Sodium Chloride 500 mls @ 500 mls/hr 01/10/25 06:35 01/10/25 06:48 0.9 % Sodium Chloride 500 Ml IV 01/10/25 07:34 500 mls/hr .Q1H ONE Administration Lorazepam 0.5 mg 01/10/25 08:26 01/10/25 08:31 Lorazepam 2 Mg/Ml Inj IVP 01/10/25 08:27 0.5 mg ONCE ONE Administration Morphine Sulfate 4 mg 01/10/25 06:35 01/10/25 06:41 Morphine 4 Mg/Ml Inj IVP 01/10/25 06:36 4 mg ONCE ONE Administration Ondansetron HCl 4 mg 01/10/25 06:35 01/10/25 06:41 Ondansetron 2 Mg/Ml Inj IVP 01/10/25 06:36 4 mg ONCE ONE Administration Medical Decision Making MDM Narrative Medical decision making narrative: 1. Multiple rib fractures-fractures of 7th 8th 9th ribs, 8th rib displaced associated with a very tiny pneumothorax. No other intra-abdominal injuries. O2 sats and vital signs remained stable here. However, given patient's age and 3 contiguous rib fractures I have spoken to [facility] which accepts this patient for transfer and admission at their facility due to risk of worsening condition. Patient has received morphine 4 mg and Dilaudid 0.5 mg while in the ED and seems to be improved. 2. Disposition- ground ambulance ALS transfer to [facility]. Are ambulance does not carry Dilaudid. Prior to transfer patient received Ativan 0.5 mg IV. They are planning on using fentanyl and or ketamine if patient has worsening symptoms. Patient depart stable at this time. Medical Records Medical records reviewed: Yes I reviewed the patient's medical records Lab Data Lab results reviewed: Yes I reviewed the patient's lab results Labs: Lab Results 01/10/25 Range/Units 06:38 WBC 11.28 H (4.50-11.00) K/uL RBC 5.08 (4.30-5.90) m/uL Hgb 15.0 (13.5-17.5) gm/dL Hct 44.9 (37.0-53.0) % MCV 88 (80-100) fL MCH 30 (26-34) pg MCHC 33 (32-36) gm/dL RDW Coeff of Luis 13.3 (11.5-15.5) % Plt Count 368 (140-440) K/uL Neut % (Auto) 72.5 H (42.0-72.0) % Lymph % (Auto) 17.5 L (20-44) % [place] % (Auto) 6.6 (0.0-11.0) % Eos % (Auto) 2.7 (0.0-7.0) % Baso % (Auto) 0.3 (0.0-3.0) % Neut # (Auto) 8.20 H (1.7-7.0) K/uL Lymph # (Auto) 2.00 (0.90-2.90) K/uL [place] # (Auto) 0.70 (0.00-0.90) K/UL Eos # (Auto) 0.30 (0.00-0.50) K/uL Baso # (Auto) 0.00 (0.00-0.30) K/uL Abs Immat Gran (auto) 0.00 (0.00-0.30) K/uL Imm/Tot Granulo (auto) 0.4 % Sodium 136 (135-149) mmol/L Potassium 4.5 (3.6-5.1) mmol/L Chloride 100 (96-114) mmol/L Carbon Dioxide 20 (20-32) mmol/L Anion Gap 16 H (7-15) mEq/L BUN 20 (7-30) mg/dL Creatinine 1.6 H (0.5-1.5) mg/dL Estimated Creat Clear 51.33 Estimated GFR 49 ml/min Glucose 198 H (60-115) mg/dL Calcium 9.4 (8.4-10.6) mg/dL Total Bilirubin 1.0 (0.1-1.5) mg/dL AST 57 H (12-35) U/L ALT 54 H (4-50) U/L Alkaline Phosphatase 65 (40-150) U/L Total Protein 8.5 H (6.0-8.3) g/dL Albumin 5.2 H (3.3-5.0) g/dL Urine Color Yellow (Yellow) Urine Appearance Clear (Clear) Urine pH 5.5 (5.0-8.5) Ur Specific [place] 1.025 (1.000-1.030) Urine Protein 2+ A (Negative) Urine Glucose (UA) Negative (Negative) Urine Ketones Negative (Negative) Urine Blood Negative (Negative) Urine Nitrite Negative (Negative) Urine Bilirubin Negative (Negative) Urine Urobilinogen 0.2 (0.2-1.0) Ur Leukocyte Esterase Negative (Negative) Urine RBC 0-2 (0-2) Urine WBC 0-2 (0-5) Ur Squamous Epith Cells Few (None-Few) Urine Bacteria None (None) Imaging Data CT Chest/Ab/Pelvis: Attestation: I have reviewed the pertinent imaging results. Radiologist's impression: CHEST: The heart size is normal. There is no mediastinal or hilar adenopathy or mass. There is no pericardial effusion. No indication of mediastinal vascular injury Minimal basilar atelectasis. No definite laceration or contusion. Tiny right effusion. Very small but unequivocal right pneumothorax best seen anteriorly. This is related to rib fractures as described below ABDOMEN AND PELVIS: LIVER/BILIARY SYSTEM:The liver is normal in size and configuration. There is no focal mass and there is no intra- or extra hepatic biliary ductal dilatation.Hepatic steatosis. Cholelithiasis without evidence of acute cholecystitis or common duct obstruction ADRENALS: Normal KIDNEYS, URETERS and BLADDER:Low-density renal lesions consistent with cysts. No posttraumatic finding. No obstructive uropathy. The bladder appears normal SPLEEN:Normal appearance. PANCREAS: Appears normal. RETROPERITONEUM and MESENTERY: There is no mass, adenopathy or aortic aneurysm. Atherosclerotic vascular calcifications. Incidentally, the patient has a duplicated IVC. GASTROINTESTINAL SYSTEM: There is no evidence of diverticulitis, colitis, mechanical obstruction, or appendicitis. The small bowel as visualized appears normal. PELVIS: No mass, adenopathy or free fluid. OSSEOUS STRUCTURES and ABDOMINAL WALL: There are fractures of the posterolateral aspect of the right 7th, 8th and 9th ribs. The 7th and 9th rib fractures are not displaced. The right rib fracture is displaced by about 1 cortex width. There is a small amount of subcutaneous emphysema. There are no additional fractures identified involving the ribcage, scapula, sternum, thoracic spine, lumbar spine or pelvis.No significant traumatic abdominal wall abnormality. Incidental fat containing bilateral inguinal hernias and diastasis rectus. OTHER: No free fluid or free air. Discussed with Dr. Kaur at 7:55 a.m. on January 11, 2020 IMPRESSION: 1. CHEST: Minimal bibasilar atelectasis. No definite contusion or laceration. Tiny right effusion. Very small but unequivocal right pneumothorax related to rib fractures as described below. No mediastinal vascular injury 2. ABDOMEN AND PELVIS: No solid organ injury. Nonacute/nontraumatic findings as discussed above 3. OSSEOUS STRUCTURES: Fractures of the right 7th, 8th and 9th ribs. The 7th and 9th rib fractures are not significantly displaced. Eighth rib fracture is displaced by about 1 cortex width. There is a small amount of associated subcutaneous emphysema. No additional fractures identified. Discharge Plan Discharge Clinical Impression: Multiple fractures of ribs Qualifiers: Encounter type: initial encounter Fracture type: closed Laterality: right Qualified Code(s): S22.41XA - Multiple fractures of ribs, right side, initial encounter for closed fracture Patient Disposition: [facility], [facility] Hospital Discharge Location: [place] Condition: Improved
[2025-01-10] MEDS: ONDANSETRON 2 MG/ML inj 4 MG IVP (06:41)
[2025-01-10] MEDS: MORPHINE 4 MG/ML INJ IVP (06:41)
[2025-01-10 06:44] LABS: Appearance Urine Clear (Clear); Bilirubin Urine Negative (Negative); Blood Urine Negative (Negative); Color Urine Yellow (Yellow); Glucose Urine Negative (Negative); Ketones Urine Negative (Negative); Leukocyte Esterase Urine Negative (Negative); Nitrite Urine Negative (Negative); Protein Urine 2+ (Negative); Specific Gravity Urine 1.025 (1.000-1.030); Urobilinogen Urine 0.2 (0.2-1.0); pH Urine 5.5 (5.0-8.5)
--- OUTSIDE RECORDS SUMMARY | 2025-01-10 06:46 | XMS_ITS | Clinical Summary ---
Author Organization [facility] Address [address] [place] [address] Care Team Providers Care [employer] Offbearer Name Role Phone Keith Paz MD Primary Care Provider Allergies No known active allergies Medications [id number] cetaminophen (VICKS NYQUIL NIGHTTIME RELIEF) 6.25-15-325 mg/15 [...] mg) by mouth once daily. Please call [phone] 2 months in advance to schedule an office visit with imaging due in November 2024 90 Tablet 2 4 Active metoprolol succinate (TOPROL XL) 50 mg sustained-relea se tabletIndicatio ns:Ascending aorta dilatation,Abno rmal stress test Take 1 Tablet (50 mg) by mouth once daily. Please call [phone] 2 months in advance to schedule an [...] Date: 09/03/19 Upcoming Visit Location: [facility] Age: 53 y.o. Insurance: [employer] EF: [...] Type Department Care Team Description 12/19/[address] [place] [address] Abrahan Pryor MD Results (trop) 12/10/2024 11:15 AM CDT Orders Only [facility] [address] [place] [address] Lab, [place] [facility] 12/10/2024 10:00 AM CDT Office Visit [facility] [address] [place] [phone] Abrahan Pryor MD Follow Up (Follow up Ascending aorta dilatation, yearly visit ) 12/10/2024 Travel 12/02/2024 10:00 AM CDT Ancillary Procedure [facility] [address] [place] [phone] 12/02/2024 Travel from Last 3 Months Immunizations Immunization Administration Dates Next Due COVID-19 vaccine ([employer] 30mcg/0.3mL) P F, MDV 10/08/2021,09/17/2021 Influenza A [...] on file Legal Sex Male 5:24 AM CORRECTIONAL PROGRAM OFFICER Gender Identity Not on file Sexual Orientation Not on file Obstetrics History Last Filed Vital Signs Vital Sign Reading Time Taken Comments Blood Pressure 138/82 12/10/2024 10:03 AM CDT Pulse 63 12/10/2024 10:03 AM CDT Temperature 36.8 C (98.2 F) 10/11/2024 11:23 AM CORRECTIONAL PROGRAM OFFICER Respiratory Rate 18 09/06/2024 10:2 7 AM CORRECTIONAL PROGRAM OFFICER Oxygen Saturation 94% 12/10/2024 10: 03 AM CDT Inhaled Oxygen Concentration - - Weight 137.2 kg (302 lb 8 oz) 10:03 AM CDT Height 174 cm (5' 8.5) 09/06/2024 10:2 7 AM CORRECTIONAL PROGRAM OFFICER with shoes Body Mass Index 45.32 09/06/2024 10:27 AM CORRECTIONAL PROGRAM OFFICER Plan of Treatment Upcoming Encounters Date Type Department Care Team (Late st Contact Info) Description 01/15/2025 10:30 AM CDT Appointment [facility] [address] [place] [address] Health Maintenance Due Date Last Done Comments [...] HIV-1/O/2, 4TH GENERATION Routine 11/18/2022 10:35 AM CORRECTIONAL PROGRAM OFFICER Screening for HIV (human immunodeficiency virus) LC HCV ANTIBODY RFX TO QUANT PCR Routine 11/18/2022 10:35 AM CORRECTIONAL PROGRAM OFFICER Need for hepatitis C screening test COLONOSCOPY SCREENING Routine 08/26/2019 12:00 AM CORRECTIONAL PROGRAM OFFICER Screening for colon cancer from Last 3 Months or Most Recently Relevant to Health Maintenance Results * TROPONIN T (HS) STABLE AMBULATORY - NOT FOR CHEST PAIN PROTOCOL/ACUTE CORONARY SYNDROMES [[id number]](12/10/2024 11:03 AM CDT) TROPONIN T, HIGH SENSITIVITY [...] Epidemiol. 2013;23(2):66-73; Zuleika SL, et al. Circulation. 2017;135(16):3793-5884). For additional information, please refer to [email or web address] (this link is being provided for informational/educational purposes only). Blood BLOOD SPECIMEN / Unknown 12/10/2024 11:03 AM CDT 12/10/2024 11:04 AM CDT Abrahan Pryor MD CHEMISTRY Final Result [facility] [address] [place] [address]~[address] [place] [phone], [place] [facility] [address], [address] [place] [address] * ECHO TTE COMPLETE WO CONTRAST (12/02/2024 [...] Tech: MBF Referring MD: PITO SERRANO Site: [facility] Reading Location: Mobile OP Patient Location: [...] . This study was interpreted by an [facility] accredited facility. Final Procedure Note Bobby Galvez MD - 12/02/2024 ECHOCARDIOGRAM IMELDA JORDAN : 1965 59 years Study Date: 12/02/2024 10:03:24 AM Gender: M BP: 156/79 mmHg Height: 173.00 cm BSA: 2.42 m Weight: 134.00 kg Tech: [employer] [facility] Referring MD: PITO SERRANO Site: [facility] Reading Location: Mobile OP Patient Location: [...] . This study was interpreted by an [facility] accredited facility. Final us Pito Serrano MD, PhD ECHO ORD Fin al Result * LIPID PANEL W REFLEX MEASURED LDL (12/12/2023 9:10 AM CDT) CHOLESTEROL,TOTAL 167 100 - 199 mg/dL 12/12/2023 4:33 PM T [facility] Comment: Cholesterol, Total Reference Ranges Desirable <200 mg/dL Borderline 200-239 mg/dL High >=240 mg/dL TRIGLYCERIDES 103 <150 mg/dL 12/12/2023 4:33 PM CDT [facility] HDL CHOLESTEROL 45 >40 mg/dL 4:33 PM T [facility] NON-HDL CHOLESTEROL 122 <145 mg/dl 12/12/2023 4:33 PM T [facility] CHOL/HDL RATIO 3.71 <4.50 12/12/2023 4:33 PM T [facility] LDL CHOLESTEROL 101 <=130 mg/dL 12/12/2023 4:33 PM T [facility] VLDL CHOLESTEROL 21 <=30 mg/dL 12/12/2023 4:33 PM T [facility] PROVIDER ORDERED STATUS RANDOM 12/12/2023 4:33 PM CDT [facility] Blood BLOOD SPECIMEN / Unknown Venipuncture / Unknown 12/12/2023 9:10 AM CDT 12/12/2023 9:10 AM CDT Pito Serrano MD, PhD CHEMISTRY Fin al Result [facility] [address] [place] [address], [place] * LC HCV ANTIBODY RFX TO QUANT PCR (11/18/2022 10:35 AM CORRECTIONAL PROGRAM OFFICER) HCV Ab Non Reactive Non Reactive 11/22/2022 6:08 AM CORRECTIONAL PROGRAM OFFICER [facility] ESOTERIC TESTING (CET) Blood BLOOD SPECIMEN / Unknown Venipuncture / Unknown 11/18/2022 10:35 AM CORRECTIONAL PROGRAM OFFICER 11/18/2022 10:38 AM CORRECTIONAL PROGRAM OFFICER Narrative FOR ESOTERIC TESTING (CET) - 11/22/2022 6:08 AM CORRECTIONAL PROGRAM OFFICER Performed at: - [facility] [place] [address] [id number] Data Communications Analyst: Petr Shah MD, Phone: [phone] us Keith Paz MD LABORATORY Final Result Performing Organization Address City/[facility]/ZIP Co de Phone Number FOR ESOTERIC TESTING (CET) [address] [place] [phone], [place] * LC HIV-1/O/2, 4TH GENERATION (11/18/2022 10:35 AM CORRECTIONAL PROGRAM OFFICER) HIV Scr 4th Gen Non Reactive Non Reactive 11/22/2022 8:37 AM CORRECTIONAL PROGRAM OFFICER FOR ESOTERIC TESTING (CET) Comment: HIV Negative HIV-1/HIV-2 antibodies and HIV-1 p24 antigen were NOT detected. There is no laboratory evidence of HIV infection. Blood BLOOD SPECIMEN / Unknown Venipuncture / Unknown 11/18/2022 10:35 AM CORRECTIONAL PROGRAM OFFICER 11/18/2022 10:38 AM CORRECTIONAL PROGRAM OFFICER N[facility]ative [facility] (CET) - 11/22/2022 8:37 AM CORRECTIONAL PROGRAM OFFICER Performed at: 01 - [facility] [place] [address] [phone] Data Communications Analyst: Petr Shah MD, Phone: [phone] us Keith Paz MD LABORATORY Final Result FOR ESOTERIC TESTING (CET) [facility] [place] [address], * COLONOSCOPY SCREENING (08/26/2019 12:00 AM CORRECTIONAL PROGRAM OFFICER) us Keith Paz MD GI PROCEDURE ORD Final Result from Last 3 Months or Most Recently Relevant to Health Maintenance Insurance [facility] [place] Advance Directives * Full Code (Latest Code Status on File) Date Activated Date Inactivated Comments 12/27/2018 8:18 AM 12/27/2018 1:19 PM * Full Code Date Activated Date Inactivated Comments 12/22/2016 1:36 PM 12/23/2016 6:13 PM * Full Code Date Activated Date Inactivated Comments 12/22/2016 1:24 PM 12/22/2016 1:36 PM Care Teams [employer] Offbearer Relationship Specialty Start Date End Date Keith Paz MD [address] [place] [address] PCP - General Family Practice 12/12/23
[2025-01-10] MEDS: 0.9 % SODIUM CHLORIDE 500 ML 500 ML IV (06:48)
[2025-01-10 06:49] LABS: Basophils Percent Auto 0.3 % (0.0-3.0); Eosinophils Percent Auto 2.7 % (0.0-7.0); Hematocrit 44.9 % (37.0-53.0); Immature Granulocytes Pct Auto 0.4 %; Lymphocytes Percent Auto 17.5 % (20-44); Mean Corpuscular HGB Conc 33 gm/dL (32-36); Mean Corpuscular Hemoglobin 30 pg (26-34); Mean Corpuscular Volume 88 fL (80-100); Monocytes Percent Auto 6.6 % (0.0-11.0); Neutrophils Percent Auto 72.5 % (42.0-72.0); Platelet Count* 368 K/uL (140-440); RDW Coefficient of Variation % 13.3 % (11.5-15.5); Red Blood Count 5.08 m/uL (4.30-5.90); White Blood Count* 11.28 K/uL (4.50-11.00)
[2025-01-10 06:53] LABS: RBC Urine 0-2 (0-2); Slide Review Reflex No; Squamous Epithelial Cell Urine Few (None-Few); WBC Urine 0-2 (0-5)
[2025-01-10 06:59] LABS: Chloride* 100 mmol/L (96-114)
[2025-01-10 07:00] LABS: Albumin* 5.2 g/dL (3.3-5.0); Potassium* 4.5 mmol/L (3.6-5.1); Sodium* 136 mmol/L (135-149)
[2025-01-10 07:02] LABS: Blood Urea Nitrogen* 20 mg/dL (7-30); Creatinine* 1.6 mg/dL (0.5-1.5); Est. Creatinine Clearance* 51.33; Estimated Glomerular Filt Rate 49 ml/min
[2025-01-10 07:03] LABS: Alanine Aminotransferase* 54 U/L (4-50); Alkaline Phosphatase* 65 U/L (40-150); Anion Gap 16 mEq/L (7-15); Aspartate Amino Transferase* 57 U/L (12-35); Calcium* 9.4 mg/dL (8.4-10.6); Carbon Dioxide* 20 mmol/L (20-32); Glucose* 198 mg/dL (60-115); Total Protein* 8.5 g/dL (6.0-8.3)
[2025-01-10] MEDS: HYDROmorphone 0.5 mg/0.5 ml inj IVP (07:12)
[2025-01-10 07:16] VITALS: PULSE 86
[2025-01-10 07:18] VITALS: BP 147/91; PULSE 85; O2SAT 94
[2025-01-10] MEDS: LORazepam 2 MG/ML inj 0.5 MG IVP (08:31)
[2025-01-10 08:49] VITALS: BP 165/92; PULSE 86; RESP 16; O2SAT 94
== END 2025-01-10 08:58 | disposition short-term general hospital (02) ==
PROVIDERS: Emergency Provider Family Medicine; PCP Family Medicine
DX: S22.41XA Multiple fractures of ribs, right side, initial encounter for closed fracture (principal); W01.10XA Fall on same level from slipping, tripping and stumbling with subsequent striking against unspecified object, initial encounter
CPT/HCPCS: 36415; 71260; 74177; 80053; 81001; 85025; 96374; 96375; 99284; J1171; J2060; J2270; J2405; J7030; Q9967

== ENCOUNTER 2025-01-10 08:35 | Outpatient (CLI) | payer OTHER, BC, SELFPAY | END 2025-01-10 08:36 | disposition home or self-care (01) | LOC: AMB 01-20 09:22 | PROVIDERS: PCP Family Medicine; Visit Provider Internal Medicine | DX: S22.49XA Multiple fractures of ribs, unspecified side, initial encounter for closed fracture (principal); S27.0XXA Traumatic pneumothorax, initial encounter | CPT/HCPCS: A0425; A0433 ==